=== PATIENT | male | born 2000 | race African-American/Black ===

== ENCOUNTER → 2019-01-23 | Outpatient (CLI) | payer OTHER ==
--- NOTE | 2019-01-23 11:43 | REP ---
Clinical: Left-sided palpable mass. Technique: Six views of the calvarium. Findings: Osseous structures are intact and normal. No obvious osseous abnormalities appreciated. Impression: Normal calvarial radiographs. Consider ultrasound examination for further investigation. Electronically Signed by Jimbo Saenz MD 01/23/2019 11:34 A
== END ==
LOC: M RAD 10:22
PROVIDERS: ATTEND Plastic Surgery Surgery of the Hand
DX: D17.0 Benign lipomatous neoplasm of skin and subcutaneous tissue of head, face and neck (principal)

== ENCOUNTER → 2019-02-15 | Outpatient (CLI) | payer OTHER ==
[~2019-02-15] MED LIST: MELO15TA28 PO
[2019-02-15 11:53] LABS: HEMOGLOBIN 16.6 g/dl (13.5-17.5); MEAN CORPUSCULAR HEMOGLOBIN 31.6 pg (27.0-33.0); MEAN CORPUSCULAR HGB CONC 33.2 g/dl (32.0-36.5); MEAN CORPUSCULAR VOLUME 95.1 fl (80.0-96.0); PLATELET COUNT, AUTOMATED 220 10^3/uL (150-450); RED BLOOD COUNT 5.26 10^6/uL (4.30-6.10); WHITE BLOOD COUNT 4.8 10^3/uL (4.0-10.0)
[2019-02-15 12:54] LABS: BLOOD UREA NITROGEN 16 MG/DL (7-18); CALCIUM LEVEL 8.9 MG/DL (8.5-10.1); CARBON DIOXIDE LEVEL 27 MEQ/L (21-32); CHLORIDE LEVEL 104 MEQ/L (98-107); CREATININE FOR GFR 1.45 MG/DL (0.70-1.30); GLUCOSE, FASTING 90 MG/DL (70-100); SODIUM LEVEL 138 MEQ/L (136-145)
== END ==
LOC: M LRY 09:26
PROVIDERS: ATTEND Plastic Surgery Surgery of the Hand
DX: D17.0 Benign lipomatous neoplasm of skin and subcutaneous tissue of head, face and neck (principal)

== ENCOUNTER 2019-02-26 06:34 | Day surgery (SDC) | payer OTHER ==
[~2019-02-26] VITALS: Ht 172.7 cm; Wt 102.2 kg
[~2019-02-26 06:34] MED LIST changes: +LIDOCAINE 1% MDV 20ML VIAL SQ PRN; +ceFAZolin SOD 2 GM in IV 1 EA IV ONE
[2019-02-26] MEDS ORDERED: LIDOCAINE 2% INJ 100 MG/5 ML SDV (FOR ANES.) As Ordered ONE (07:48)
[2019-02-26] MEDS ORDERED: fentaNYL 100 MCG/2 ML INJECTION (J3010) As Ordered ONE (07:49)
[2019-02-26] MEDS ORDERED: PROPOFOL 200 MG/20 ML VIAL As Ordered ONE (07:49)
[2019-02-26] MEDS ORDERED: MIDAZOLAM INJ 2 MG/2 ML VIAL (J2250) As Ordered ONE (07:49)
[2019-02-26] MEDS ORDERED: LR 1,000 ML IV ONE (08:15)
[2019-02-26] MEDS ORDERED: POVIDONE-IODINE 5% OPHTH PREP SOL 30ML As Ordered ONE (08:15)
[2019-02-26] MEDS ORDERED: BACITRACIN OINT 30GM As Ordered ONE (08:19)
[2019-02-26] MEDS ORDERED: LIDOCAINE 2% W/EPIN INJ 20ML **PRES FREE As Ordered ONE (08:19)
[2019-02-26] MEDS ORDERED: dexameTHASONE 4 MG/ML 1ML VIAL (J1100) As Ordered ONE (08:41)
[2019-02-26] MEDS ORDERED: ONDANSETRON 4MG/2ML VIAL (J2405) As Ordered ONE (08:54)
--- NOTE | 2019-02-26 09:47 | POST-OPPD ---
Postoperative Procedure Note Date Of Procedure: Feb 26, 2019 PREOPERATIVE DIAGNOSIS: Left forehead mass POSTOPERATIVE DIAGNOSIS: same FINDINGS: left forehead mass PROCEDURE: Excision left forehead mass SURGEON: Dr Navas ANESTHESIA: General SPECIMENS: Left forehead mass ESTIMATED BLOOD LOSS: 5 cc REPLACED: none DRAINS: none COMPLICATIONS: none POSTOPERATIVE CONDITION: stable SILAS NAVAS DO Feb 26, 2019 09:47
[2019-02-26] MEDS ORDERED: TYLETAB14 PO (10:02)
[2019-02-26] MEDS ORDERED: oxyCODONE 5MG TAB As Ordered ONE (10:21)
[2019-02-26] MEDS: oxyCODONE 5MG TAB PO PRN ×2 (10:22→11:45)
[2019-02-26] MEDS ORDERED: LR 1,000 ML IV SCH (11:00)
[2019-02-26] MEDS ORDERED: fentaNYL 100 MCG/2 ML INJECTION (J3010) IV PRN (11:00)
[2019-02-26] MEDS ORDERED: ONDANSETRON 4MG/2ML VIAL (J2405) IV PRN (11:00)
[2019-02-26 11:35] VITALS: BP 110/78
--- NOTE | 2019-02-26 12:38 | RO ---
DATE OF OPERATION: 02/26/2019 PREOPERATIVE DIAGNOSIS: Left forehead mass. POSTOPERATIVE DIAGNOSIS: Left forehead mass. PROCEDURE: Excision left forehead mass. ATTENDING SURGEON: Abbey Ochoa DO ANESTHESIA: General. SPECIMENS: Left forehead mass. BLOOD LOSS: 5 mL. DESCRIPTION OF PROCEDURE: This is a 18-year-old male who has a slow growing soft round mass on her left upper forehead. It is measuring 2.5 x 2.5 cm in diameter. It started creating tension and pressure in the area. The patient would like to have it removed. Call x-ray was done. No bony involvement. The mass is appearing as a lipoma. Patient is scheduled for a left forehead mass excision. All the risks and benefits and alternatives discussed with the patient in detail, and she is ready to proceed. The day of surgery he was marked in preoperative holding area. Informed consent was confirmed, and he was brought into the operating room and placed in supine position. General anesthesia was induced. Preoperative antibiotics were given. Sequential stockings placed on the lower calves. He was prepped and draped in the usual sterile fashion. We designed the incision along the hairline to minimize the visibility of the incision. 2% lidocaine with epinephrine was infiltrated in the area and incision was carried out. Sharp and blunt dissection was done until the frontalis muscle was identified and it was split longitudinally. Hemostasis was obtained using electrocautery. 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 Careful dissection was done bluntly and sharply to separate it from the surrounding tissues. Has a lot of adhesions. The mass is then safely removed. The area was irrigated with Bacitracin solution. Frontalis muscle was approximated with #4-0 Vicryl sutures. Subcutaneous layer was closed with #4-0 Monocryl sutures and #5-0 Monocryl sutures as well, creating a good contour. Bacitracin ointment and compressive dressing is placed on the area. Patient was extubated in the operating room without any difficulty and was transferred to the recovery room in stable condition. LUIS M
== END 2019-02-26 12:16 | disposition home or self-care (01) ==
LOC: M SDC 06:34
PROVIDERS: ATTEND Plastic Surgery Surgery of the Hand
DX: D17.0 Benign lipomatous neoplasm of skin and subcutaneous tissue of head, face and neck (principal); Z79.899 Other long term (current) drug therapy
CPT/HCPCS: 11446; 88305; J0690; J1100; J2250; J2405; J3010